=== PATIENT | female | born 1990 | race Caucasian/White ===

== ENCOUNTER 2025-01-14 13:07 | Emergency (ER) | payer OTHER, BC, SELFPAY ==
[2025-01-14 13:18] VITALS: BP 127/72; PULSE 73; TEMP 36.7; O2SAT 99; BMI 22.2
--- NOTE | 2025-01-14 13:26 | ECG_ITS ---
[facility] Test Date: 2025-01-14 Pat Name: NORA SHOOK Department: Room: - Gender: Female Pattern Developer: : 1990 Requested By: [id number] Order Number: [id number] Reading MD: HILAIRO VILLARREAL M.D. Measurements Intervals [place] Rate: 85 P: -43 [place]: 156 QRS: 120 QRSD: 78 T: 45 QT: 368 QTc: 410 Interpretive Statements Normal sinus rhythm 5120 Possible right ventricular hypertrophy 9140 abnormal rhythm ECG No previous ECG available for comparison Electronically Signed On 01-14-2025 13:52:39 EDT by HILARIO VILLARREAL M.D.
--- NOTE | 2025-01-14 13:27 | ED.GENADUL1 ---
HPI HPI - General Adult General Chief complaint: Shortness of Breath/Dyspnea Stated complaint: CHEST PAIN Time Seen by Provider: 01/14/25 13:20 Source: patient Mode of arrival: walk-in Limitations: no limitations History of Present Illness HPI narrative: 34-year-old female presents to the emergency department for a chief complaint of chest pain and shortness of breath. It started about 830 this morning, about 5 hours ago. She has pain in the left upper part of her chest and it is worse when she exerts. It is worse when she takes in a deep breath. No injury or fever or productive cough. Related Data Home Medications ?Medication ?Instructions ?Recorded ?Confirmed No Known Home Medications 01/14/25 01/14/25 Allergies Allergy/AdvReac Type Severity Reaction Status Date / Time No Known Drug Allergies Allergy Verified 01/14/25 13:17 Opioid HPI Opioid Management Most Recent Opioid Data: Last Pain Scale 7 Today, 13:18 Review of Systems ROS Narrative A ten point review of systems is negative except as noted above. PFSH PFSH Social History Little interest or pleasure in doing things: not at all Feeling down, depressed, or hopeless: not at all Exam Narrative Exam Narrative: Nurses note and vital signs reviewed and patient is not hypoxic. General: The patient appears well and in no apparent distress. Patient is resting comfortably on cart. Skin: Warm, dry, no pallor noted. There is no rash noted. Head: Normocephalic, atraumatic Eye: Normal conjunctiva, no drainage Ears, Nose, Mouth, and Throat: oral mucosa is moist. Nares patent. Cardiovascular: Regular Rate and Rhythm, not tachycardic Respiratory: Patient is in no distress, no accessory muscle use, lungs are clear to auscultation, no wheezing, rales or rhonchi Back: non-tender GI: Soft and nontender Musculoskeletal: The patient has no evidence of calf tenderness, no pitting edema, symmetrical pulses noted bilaterally Neurological: A&O, normal speech Psychiatric: Cooperative Constitutional Vital Signs, click to edit/add: Last Vital Signs Temp 98.1 F 01/14/25 13:18 Pulse 73 01/14/25 13:18 Resp 18 01/14/25 13:18 BP 127/72 01/14/25 13:18 Pulse Ox 99 01/14/25 13:18 O2 Del Method Room Air 01/14/25 13:18 Course Vital Signs Vital signs: Vital Signs Temperature 98.1 F 01/14/25 13:18 Pulse Rate 73 01/14/25 13:18 Respiratory Rate 18 01/14/25 13:18 Blood Pressure 127/72 01/14/25 13:18 Pulse Oximetry 99 01/14/25 13:18 Oxygen Delivery Method Room Air 01/14/25 13:18 Temperature 98.1 F 01/14/25 13:18 Pulse Rate 73 01/14/25 13:18 Respiratory Rate 18 01/14/25 13:18 Blood Pressure 127/72 01/14/25 13:18 Pulse Oximetry 99 01/14/25 13:18 Oxygen Delivery Method Room Air 01/14/25 13:18 Medical Decision Making MDM Narrative Medical decision making narrative: Her workup including troponin and D-dimer is negative. The patient had a very weakly positive urine test so an hCG titer was performed. Her level is 4. She was reassured that she is not . She will follow-up with her doctor if symptoms persist. Treatment diagnosis and follow-up were discussed with the patient. Lab Data Lab results reviewed: Yes I reviewed the patient's lab results Labs: Lab Results 01/14/25 Range/Units 13:35 WBC 7.2 (4.0-11.0) 10^3/uL RBC 4.81 (4.20-5.40) 10^6/uL Hgb 14.0 (12.0-16.0) g/dL Hct 41.3 (36.0-48.0) % MCV 85.9 (81.0-99.0) fL MCH 29.1 (26.7-34.0) pg MCHC 33.9 (29.9-35.2) g/dL RDW 12.4 (11.0-15.0) % Plt Count 237 (150-450) 10^3/uL MPV 10.0 (9.5-13.5) fL Neut % (Auto) 60.9 (43.0-75.0) % Lymph % (Auto) 30.7 (20.5-60.0) % Maury % (Auto) 6.8 (1.7-12.0) % Eos % (Auto) 0.6 L (0.9-7.0) % Baso % (Auto) 0.7 (0.2-2.0) % Neut # (Auto) 4.4 (1.4-6.5) 10^3/uL Lymph # (Auto) 2.2 (1.2-3.8) 10^3/uL Maury # (Auto) 0.5 (0.3-0.8) 10^3/uL Eos # (Auto) 0.0 (0.0-0.7) 10^3/uL Baso # (Auto) 0.1 (0.0-0.1) 10^3/uL Abs Immat Gran (auto) 0.02 (0.00-0.03) 10^3/uL Imm/Tot Granulo (auto) 0.3 (0.0-0.5) % D-Dimer 0.21 (<=0.59) mg/L FEU Sodium 141 (136-145) mmol/L Potassium 3.5 (3.5-5.1) mmol/L Chloride 105 (98-107) mmol/L Carbon Dioxide 25.5 (21.0-32.0) mmol/L Anion Gap 14.0 BUN 12.0 (7.0-18.0) mg/dL Creatinine 0.68 (0.55-1.02) mg/dL Est GFR ( Amer) >60 (>=60 mL/min/1.73m^2) Est GFR (Non-Af Amer) >60 (>=60 mL/min/1.73m^2) BUN/Creatinine Ratio 17.6 Glucose 96 (74-106) mg/dL Calcium 8.5 (8.5-10.1) mg/dL Troponin I High Sens 4.1 (4.0-51.3) pg/mL Serum HCG, Qual Positive A (NEGATIVE) HCG, Quant 4 mIU/mL Imaging Data Chest x-ray: Radiologist's impression: No acute process ECG Data Attestation: I personally reviewed and interpreted this ECG as follows: (EKG on my interpretation shows sinus rhythm with rate of 85 and no acute change) Discharge Plan Discharge Chief Complaint: Shortness of Breath/Dyspnea Clinical Impression: Chest pain Patient Disposition: Home, Self-Care Time of Disposition Decision: 15:19 Condition: Good Mode of Transportation: Private Vehicle Prescriptions / Home Meds: No Action No Known Home Medications Print Language: Korean Instructions: Chest Pain (ED) Referrals: JASMYN ROBBINS [Primary Care Provider, Internal Medicine] - 1 week
[2025-01-14 14:05] LABS: Basophils Absolute Auto 0.1 10^3/uL (0.0-0.1); Basophils Percent Auto 0.7 % (0.2-2.0); Eosinophils Percent Auto 0.6 % (0.9-7.0); Hematocrit 41.3 % (36.0-48.0); Immature Granulocytes Abs Auto 0.02 10^3/uL (0.00-0.03); Immature Granulocytes Pct Auto 0.3 % (0.0-0.5); Lymphocytes Absolute Auto 2.2 10^3/uL (1.2-3.8); Lymphocytes Percent Auto 30.7 % (20.5-60.0); Mean Corpuscular HGB Conc 33.9 g/dL (29.9-35.2); Mean Corpuscular Hemoglobin 29.1 pg (26.7-34.0); Mean Corpuscular Volume 85.9 fL (81.0-99.0); Monocytes Absolute Auto 0.5 10^3/uL (0.3-0.8); Monocytes Percent Auto 6.8 % (1.7-12.0); Neutrophils Absolute Auto 4.4 10^3/uL (1.4-6.5); Neutrophils Percent Auto 60.9 % (43.0-75.0); Platelet Count 237 10^3/uL (150-450); Red Blood Count 4.81 10^6/uL (4.20-5.40); Red Cell Distribution Width 12.4 % (11.0-15.0); White Blood Count 7.2 10^3/uL (4.0-11.0)
[2025-01-14 14:23] LABS: D Dimer 0.21 mg/L FEU (<=0.59)
[2025-01-14 14:24] LABS: BUN Creatinine Ratio 17.6; Calcium 8.5 mg/dL (8.5-10.1); Carbon Dioxide 25.5 mmol/L (21.0-32.0); Chloride 105 mmol/L (98-107); Estimated GFR (African America >60 (>=60 mL/min/1.73m^2); Estimated GFR (Non-African Ame >60 (>=60 mL/min/1.73m^2); Glucose 96 mg/dL (74-106); Potassium 3.5 mmol/L (3.5-5.1); Sodium 141 mmol/L (136-145); Troponin I High Sensitivity 4.1 pg/mL (4.0-51.3)
[2025-01-14 14:29] LABS: HCG Qualitative POSITIVE (NEGATIVE); Internal Control Within Normal Limits
[2025-01-14 14:50] LABS: HCG Quantitative 4 mIU/mL
[2025-01-14 15:33] VITALS: BP 126/68; PULSE 82; O2SAT 98
== END 2025-01-14 15:34 | disposition home or self-care (01) ==
PROVIDERS: Emergency Provider Emergency Medicine; PCP Internal Medicine
DX: R07.89 Other chest pain (principal); R06.02 Shortness of breath
CPT/HCPCS: 36415; 71045; 80048; 84484; 84702; 84703; 85025; 85378; 93005; 99285